=== PATIENT | female | born 1995 | race Caucasian/White ===

== ENCOUNTER 2017-02-25 23:53 | Emergency (ER) | payer BC ==
[~2017-02-25] VITALS: Ht 154.9 cm; Wt 88.1 kg
[~2017-02-25 23:53] MED LIST: BCPILLS PO; MEDR10TA PO; OMEP20TA PO
[2017-02-26 00:01] VITALS: Ht 154.9 cm; Wt 88.1 kg
[2017-02-26 00:47] LABS: BASO % 0.2 %; BASO ABS # 0.02 K/uL (0-0.2); COMPLETE YES; EOS % 1.2 %; HEMATOCRIT 31.6 % (37-47); IG% 0.3 %; LYMPH % 24.4 %; LYMPH ABS # 2.52 K/uL (1.2-3.4); MEAN CELL VOLUME 72.5 fL (80-100); MEAN CORPUSCULAR HEMOGLOBIN 23.4 pg (25-34); MEAN CORPUSCULAR HGB CONC 32.3 g/dl (32-36); MEAN PLATELET VOLUME 8.6 fL (7.4-10.4); MONO % 6.9 %; PLATELET COUNT 420 K/uL (130-400); RED BLOOD COUNT 4.36 M/uL (4.2-5.4); WHITE BLOOD COUNT 10.31 K/uL (4.8-10.8)
[2017-02-26 00:55] LABS: MANUAL MICROSCOPIC REQUIRED? NO; REVIEW REQ? NO; URINE APPEARANCE CLEAR (CLEAR); URINE BILIRUBIN NEG (NEG); URINE COLOR YELLOW; URINE EPITHELIAL CELL AUTO >30 /lpf (0-5); URINE NITRITE NEG (NEG); URINE SPECIFIC GRAVITY 1.033 (1.000-1.030); UROBILINOGEN NEG (NEG); ZZUR CULT IF INDIC CLEAN CATCH NO
[2017-02-26 00:56] LABS: PROTHROMBIN TIME (PATIENT) 10.5 SECONDS (9.0-12.0)
[2017-02-26 01:04] LABS: BUN/CREATININE RATIO 14.8 (10-20); CALCIUM 8.9 mg/dl (8.5-10.1); CREATININE 0.63 mg/dl (0.60-1.20); POTASSIUM 3.6 mmol/L (3.5-5.1)
[2017-02-26 01:06] LABS: ALB/GLOB RATIO 0.6 (0.9-2)
[2017-02-26] MEDS ORDERED: VNTHFA/IN INH (02:14)
[2017-02-26 03:35] VITALS: BP 118/78; PULSE 78; TEMP 36.8; O2SAT 99
--- NOTE | 2017-02-26 05:05 | EMERGENCY ROOM VISIT NOTE ---
History First contact with patient: 00:11 Chief Complaint: ED VAG BLEEDING Stated Complaint: VAG BLEEDING History of Present Illness The patient is a 21 year old female who presents to the Emergency Room with complaints of ongoing vaginal bleeding for the past several months. Patient was seen by myself last month and was advised to follow-up with [facility]. Patient was placed on progesterone taper pack and this resolved her bleeding but then restarted 3 days ago. She did start her control pills but then stopped them when the bleeding started. She was then put back on Provera 10 mg daily for 7 days by the [facility] that saw her at [facility]. The bleeding persists and this is what prompts her to come to the ER. Patient states she's been going through a tampon or pad every hour or 2. Patient denies chest pain, dyspnea, abdominal pain, back pain, lightheadedness, dizziness, dyspnea, leg pain or swelling. Review of Systems See HPI for pertinent positives & negatives. A total of 10 systems reviewed and were otherwise negative. Past Medical/Surgical History Dysfunction uterine bleeding Social History Smoking Status: Current Every Day Smoker Smokeless Tobacco Use: No Alcohol Use: occasionally Drug Use: none Occupation Status: [employer] student Current/Historical Medications Scheduled Medroxyprogesterone (Provera), 10 MG PO DAILY Scheduled PRN Albuterol Hfa (Ventolin Hfa), 2 PUFFS INH Q6H PRN for SOB/Wheezing Physical Exam Vital Signs Date Time Temp Pulse Resp B/P (MAP) Pulse Ox O2 Delivery O2 Flow Rate FiO2 02/26/17 03:35 36.8 78 18 118/78 99 02/26/17 01:52 84 18 107/60 98 Room Air 02/26/17 00:01 36.8 104 20 131/89 99 Room Air Physical Exam VITALS: Vitals are noted on the nurse's note and reviewed by myself. Vital signs stable. GENERAL: Pleasant female smiling and working on her laptop, in no acute distress , nondiaphoretic, well-developed well-nourished. SKIN: Capillary reflex less than 2 seconds. HEENT: Normocephalic. PERRLA. EOMI. Nares patent. Mucous membranes moist. Neck is supple without nuchal rigidity. HEART: Regular rate and rhythm without murmurs gallops or rubs. LUNGS: Clear to auscultation bilaterally without wheezes, rales or rhonchi. No retractions or accessory muscle use. ABDOMEN: Positive bowel sounds x 4. Normal tympanic percussion. Soft, nontender, without masses or organomegaly. Snyder sign negative. No guarding or rebound tenderness. No CVA tenderness exam: Normal external vaginal genitalia, minimal blood in the vault, players club representative present. MUSCULOSKELETAL: No gross musculoskeletal defects. No pedal edema. No calf tenderness. NEURO: Patient was alert and oriented to person place and time. Normal sensation to light and sharp touch. No focal neurological deficits. Medical Decision & Procedures Laboratory Results 02/26/17 00:37 Red Blood Count 4.36, Mean Corpuscular Volume 72.5, Mean Corpuscular Hemoglobin 23.4, Mean Corpuscular Hemoglobin Concent 32.3, Mean Platelet Volume 8.6, Neutrophils (%) (Auto) 67.0, Lymphocytes (%) (Auto) 24.4, Monocytes (%) (Auto) 6.9, Eosinophils (%) (Auto) 1.2, Basophils (%) (Auto) 0.2, Neutrophils # (Auto) 6.91, Lymphocytes # (Auto) 2.52, Monocytes # (Auto) 0.71, Eosinophils # (Auto) 0.12, Basophils # (Auto) 0.02 02/26/17 00:37 Test 02/26/17 00:37 02/26/17 00:45 White Blood Count 10.31 K/uL (4.8-10.8) Red Blood Count 4.36 M/uL (4.2-5.4) Hemoglobin 10.2 g/dL (12.0-16.0) Hematocrit 31.6 % (37-47) Mean Corpuscular Volume 72.5 fL (80-100) Mean Corpuscular Hemoglobin 23.4 pg (25-34) Mean Corpuscular Hemoglobin Concent 32.3 g/dl (32-36) Platelet Count 420 K/uL (130-400) Mean Platelet Volume 8.6 fL (7.4-10.4) Neutrophils (%) (Auto) 67.0 % Lymphocytes (%) (Auto) 24.4 % Monocytes (%) (Auto) 6.9 % Eosinophils (%) (Auto) 1.2 % Basophils (%) (Auto) 0.2 % Neutrophils # (Auto) 6.91 K/uL (1.4-6.5) Lymphocytes # (Auto) 2.52 K/uL (1.2-3.4) Monocytes # (Auto) 0.71 K/uL (0.11-0.59) Eosinophils # (Auto) 0.12 K/uL (0-0.5) Basophils # (Auto) 0.02 K/uL (0-0.2) RDW Standard Deviation 44.9 fL (36.4-46.3) RDW Coefficient of Variation 16.9 % (11.5-14.5) Immature Granulocyte % (Auto) 0.3 % Immature Granulocyte # (Auto) 0.03 K/uL (0.00-0.02) Prothrombin Time 10.5 SECONDS (9.0-12.0) Prothromb Time International Ratio 1.0 (0.9-1.1) Activated Partial Thromboplast Time 24.7 SECONDS (21.0-31.0) Partial Thromboplastin Ratio 1.0 Anion Gap 7.0 mmol/L (3-11) Est Creatinine Clear Calc Drug Dose 143.7 ml/min Estimated GFR () 149.7 Estimated GFR (Non- 129.1 BUN/Creatinine Ratio 14.8 (10-20) Calcium Level 8.9 mg/dl (8.5-10.1) Total Bilirubin 0.1 mg/dl (0.2-1) Aspartate Amino Transf (AST/SGOT) 12 U/L (15-37) Alanine Aminotransferase (ALT/SGPT) 14 U/L (12-78) Alkaline Phosphatase 58 U/L (45-117) Total Protein 7.9 gm/dl (6.4-8.2) Albumin 3.1 gm/dl (3.4-5.0) Globulin 4.8 gm/dl (2.5-4.0) Albumin/Globulin Ratio 0.6 (0.9-2) Urine Color YELLOW Urine Appearance CLEAR (CLEAR) Urine pH 5.0 (4.5-7.5) Urine Specific [place] 1.033 (1.000-1.030) Urine Protein NEG (NEG) Urine Glucose (UA) NEG (NEG) Urine Ketones TRACE (NEG) Urine Occult Blood 3+ (NEG) Urine Nitrite NEG (NEG) Urine Bilirubin NEG (NEG) Urine Urobilinogen NEG (NEG) Urine Leukocyte Esterase NEG (NEG) Urine WBC (Auto) 1-5 /hpf (0-5) Urine RBC (Auto) 10-30 /hpf (0-4) Urine Hyaline Casts (Auto) 1-5 /lpf (0-5) Urine Epithelial Cells (Auto) >30 /lpf (0-5) Urine Bacteria (Auto) NEG (NEG) Urine Test NEG (NEG) ED Course Prior records/ancillary studies reviewed. Triage Nursing notes reviewed. The patient's history was concerning for vaginal bleeding Differential diagnosis: Etiologies such as ectopic , dysfunction uterine bleeding, bleeding dyscrasia, trauma, infection, as well as others were entertained. Physical examination: As above. Vitals signs revealed stable. ER treatment provided: By mouth fluids On reassessment the patient felt better. Diagnostic interpretation by me: The labs revealed mild anemia, stable test was negative. Imaging studies: Ultrasound as above US PELVIC/ENDOVAG: Comparison: US Pelvis, January 26, 2017 Impression: Findings suggesting blood clot within the endometrial cavity. Comment: The uterus measures 2.9 x 4 x 7.9 cm. There is the suggestion of 2 endometrial cavities which may indicate arcuate or bicornuate anatomy. Endometrium cavity contains 9 mm thick multiple heterogeneous material without vascularity on color flow imaging, likely blood clot. Left ovary is normal in size, measuring 1.7 x 1.5 x 2.7 cm with normal arterial and venous waveforms on color and spectral Doppler imaging. There is a 9 mm simple paraovarian cyst. Right ovary measures 1.5 x 1.5 x 3.3 cm with normal arterial and venous waveforms and normal color Doppler signal Radiologist: Dolores Watson M.D. Consultation: A consultation was placed with the charter driver physician, Dr Covarrubias. The case was discussed and diagnostics were reviewed. She recommends to continue the Provera and then start the control immediately after that and follow-up with her [facility] she saw. This appears to be consistent with the social uterine bleeding. Patient had minimal blood on exam. Stable H&H. She is advised to finish out the Provera then immediately start her control. She is advised to follow-up with her [facility] at health services for further evaluation treatment for her ongoing abnormal uterine bleeding for the past several months. She is advised to return to the ER immediately for heavy bleeding, difficulty breathing, fatigue, worsening signs or symptoms or as needed. By the evaluation outlined above emergent etiologies such as bleeding dyscrasia, ectopic , trauma, as well as others were deemed relatively unlikely. The pt informed about the findings as listed above. All questions were answered and pleased with the treatment. Return instructions were outlined and the patient was discharged in stable condition. Case reviewed with my attending Referral: The patient was referred to [facility] for follow-up in 2 to 3 days for a recheck of her current condition. Medical Decision As above Medication Reconcilliation Current Medication List: was personally reviewed by me Blood Pressure Screening Patient's blood pressure: Normal blood pressure Impression Primary Impression: Abnormal uterine bleeding Additional Impression: Anemia Departure Information Dispostion Home / Self-Care Condition GOOD Forms WORK / SCHOOL INSTRUCTIONS, HOME CARE DOCUMENTATION FORM, IMPORTANT VISIT INFORMATION Patient Instructions [facility], ED Bleed Irregular Vaginal Additional Instructions Finish off your Provera and then immediately start your control. Ibuprofen(Motrin, Advil) may be used for fever or pain. Use 600mg every six hours as needed. Take with food. Avoid using more than 2400mg in a 24 hour period. Do not use 2400mg per day for more than three consecutive days without physician direction. Prolonged inappropriate use can lead to stomach upset or ulcers. (AND/OR) Acetaminophen(Tylenol) may be used for fever or pain. Use 1000mg every six hours as needed. Avoid using more than 3000mg in a 24 hour period. Rest and drink plenty of fluids as tolerated. Continue current medications. Return to the ER immediately for severe pain, heavy vaginal bleeding, abdominal pain, vomiting, fevers, chest pains, difficulty breathing, worsening of your condition, or as needed. Follow up with your [facility]ANGER in 2-3 days for a recheck of your current condition. Problem Qualifiers
--- NOTE | 2017-02-26 06:39 | DIAGNOSTIC IMAGING REPORT ---
EXAMINATION: PELVIC ULTRASOUND CLINICAL HISTORY: Pelvic pain, and abnormal vaginal bleeding. COMPARISON STUDY: 01/26/2017 FINDINGS: The uterus measured 6.3 x 3.1 x 5.2 cm.. The endometrial stripe measured 9 mm, and appear to contain a mobile clot.. The right ovary measured 33 x 15 x 15 mm. The left ovary measured 27 x 15 x 17 mm. There is a suspected 9 mm left para ovarian cyst.. There is no ultrasonographic evidence of ovarian torsion. It should be noted that ovarian torsion can be present with normal Doppler ultrasonographic findings. There was no evidence of pathologic free pelvic fluid. IMPRESSION: 1. 9 mm left-sided paraovarian cyst. Otherwise normal ovaries 2. 9 mm endometrial stripe which appear to contain a mobile clot. Electronically signed by: Abebe Gerber M.D. 02/26/2017 6:38 AM Dictated Date/Time: 02/26/2017 6:35 AM
== END 2017-02-26 03:36 | disposition home or self-care (01) ==
LOC: C.EDB 23:54
DX: N93.8 Other specified abnormal uterine and vaginal bleeding (principal); D64.9 Anemia, unspecified; N83.202 Unspecified ovarian cyst, left side; F17.210 Nicotine dependence, cigarettes, uncomplicated